=== PATIENT | male | born 1980 | race Caucasian/White ===

== ENCOUNTER 2024-07-04 09:26 | Observation (INO) | payer SELFPAY ==
[2024-07-04] VITALS (14 sets, daily range): BP systolic 129–165; BP diastolic 95–111; PULSE 82–106; RESP 13–18; TEMP 36.1–36.9; O2SAT 94–98; BMI 30.1; BMI 28.0
--- NOTE | 2024-07-04 09:31 | CT_ITS ---
We are attempting to reach an attending provider to discuss findings. An addendum with communication details will be sent when the communication is complete. EXAM: CT HEAD WITHOUT INTRAVENOUS CONTRAST CLINICAL INDICATION: CVA TECHNIQUE: Multiple axial images were obtained of the head without intravenous contrast. This CT exam was performed using one or more of the following dose reduction techniques: automated exposure control, adjustment of the mA and/or kV according to patient size, and/or use of iterative reconstruction technique. COMPARISON: No relevant prior studies available. FINDINGS: BRAIN AND EXTRA-AXIAL SPACES: Normal. Normal brain attenuation. No intra- or extra-axial hemorrhage. No acute infarct. No intracranial mass or mass effect. There is preservation of the duran/white matter interface. Posterior fossa structures are unremarkable. Ventricles are appropriate for age. No hydrocephalus. Basal cisterns are patent. BONES/JOINTS: Normal calvarium. SINUSES: No acute sinusitis. MASTOID AIR CELLS: Surgical changes of left mastoidectomy. Normal right mastoid sinus. CT/STROKE Brain/Head without Cont IMPRESSION: No acute intracranial abnormality. Aspect score 10. Electronically Signed: Dennys Gusman MD at 9:59 EST ,
--- NOTE | 2024-07-04 09:31 | CT_ITS ---
We are attempting to reach an attending provider to discuss findings. An addendum with communication details will be sent when the communication is complete. INDICATION: Neuro deficit, acute, stroke suspected EXAMINATION: CTA HEAD - CTA Head and Neck Stroke W/ Contrast (and W/O if performed) TECHNIQUE: [place]/head CT angiogram protocol was performed following IV contrast. Routine carotid CT angiogram protocol was performed with IV contrast. NASCET criteria using the distal ICAs for comparison were used for evaluation of stenoses. 3D reconstructions were reviewed of the CT angiogram head and neck. A radiation dose optimization technique was used for this scan. IV Contrast dosage and agent: 100 cc [id number] COMPARISON: None. FINDINGS: --Anterior cerebral circulation: ACAs: No significant stenosis at the visualized segments. ACOM: Not present. MCAs: No significant stenosis at the visualized segments. --Posterior cerebral circulation: PCOMs: Present bilaterally. hot wound spring production supervisor: No significant stenosis at the visualized segments. BASILAR ARTERY: No significant stenosis. --Carotid and vertebral circulation: AORTIC ARCH AND BRANCHES: Normal anatomy, patent. RIGHT CCA: No occlusion, significant stenosis or dissection. RIGHT ICA: No occlusion, significant stenosis or dissection. LEFT CCA: No occlusion, significant stenosis or dissection. LEFT ICA: No occlusion, significant stenosis or dissection. RIGHT VERTEBRAL ARTERY: No occlusion, significant stenosis or dissection. LEFT VERTEBRAL ARTERY: No occlusion, significant stenosis or dissection. NECK SOFT TISSUES: Unremarkable. LUNG APICES: Clear. BONES: Unremarkable. CT/STROKE CTA Head AND Neck W/Con IMPRESSION: Normal CTA Head and CTA Neck Electronically Signed: Dennys Gusman MD at 10:01 EST ,
--- NOTE | 2024-07-04 09:31 | EKG12_ITS ---
Test Reason : Blood Pressure : */* mmHG Vent. Rate : 100 BPM Atrial Rate : 100 BPM P-R Int : 168 ms QRS Dur : 64 ms QT Int : 314 ms P-R-T Axes : 52 52 56 degrees QTcB Int : 405 ms Normal sinus rhythm Normal ECG Confirmed by CHRISTINE LEWIS, FELIX ([id number]), editor in chief newspaper TONYA INIGUEZ ([id number]) on 07/06/2024 6:23:34 AM Referred By: Confirmed By: FELIX KING MD
--- NOTE | 2024-07-04 09:31 | RAD_ITS ---
EXAM: XR CHEST, 1 VIEW CLINICAL INDICATION: Neuro deficit, acute, stroke suspected TECHNIQUE: Frontal view of the chest. COMPARISON: No relevant prior studies available. FINDINGS: LUNGS AND PLEURAL SPACES: Normal. No consolidation or edema. No pneumothorax. No effusion. HEART: Normal heart size. MEDIASTINUM: No mediastinal or hilar mass. BONES/JOINTS: No acute abnormality. RAD/Chest 1 View IMPRESSION: No acute cardiopulmonary disease. Electronically Signed: Dennys Gusman MD at 11:23 EST ,
--- NOTE | 2024-07-04 09:35 | ED.VIS.STROK ---
HPI History of Present Illness Chief Complaint: Stroke Alert Informant: patient Onset/Context/Timing Onset: Today Context: Sudden Onset Timing: Continuous Quality and Location: Positive for Left Facial Droop, Left Arm Weakness and Left Leg Weakness Onset: Last known well was 0200 today. Worsened by: Nothing Relieved by: Nothing Associated Symptoms Associated Symptoms: Negative for Headache, Nausea, Vomiting or Chest Pain Narrative Narrative: Patient presents for stroke alert. Patient last known well was 2 AM today. [facility] and EMS was called because of the left facial weakness and left upper and lower extremity weakness. Patient states he has had a prior stroke but does not know what deficits he had with that. EMS also reports that the patient told them that he had a prior brain tumor. Patient denies any difficulty breathing or difficulty swallowing. Patient denies any slurred speech. Patient denies any visual changes. [facility] Medical History (Updated 07/04/24 @ 11:[address] Venancio Sim, DO) Stroke Home Medications ?Medication ?Instructions ?Recorded ?Last Taken ?Type NK 07/04/24 Unknown History Allergy/AdvReac Type Severity Reaction Status Date / Time ibuprofen (From Advil) Allergy Severe Anaphylaxis Verified 07/04/24 09:50 Social History Smoking Status: Never smoker EXAM Physical Exam Const Vital Signs: 07/04/24 09:27 07/04/24 09:31 07/04/24 09:44 Temperature 97.5 F L 97.5 F L Temperature Source Temporal Temporal Pulse Rate 98 98 Respiratory Rate 16 16 Blood Pressure 150/100 H 150/100 H Blood Pressure Mean 116 116 Pulse Ox 96 96 98 Oxygen Delivery Method Room Air Room Air Room Air 07/04/24 09:45 07/04/24 10:08 07/04/24 10:26 Temperature Temperature Source Pulse Rate 103 H 97 99 Respiratory Rate 16 13 16 Blood Pressure 157/111 H 159/102 H 148/101 H Blood Pressure Mean 126 121 116 Pulse Ox 97 97 94 Oxygen Delivery Method Room Air Room Air Room Air 07/04/24 10:39 07/04/24 11:05 07/04/24 11:19 Temperature 97.5 F L Temperature Source Oral Pulse Rate 92 90 96 Respiratory Rate 15 15 17 Blood Pressure 148/101 H 165/106 H 143/95 H Blood Pressure Mean 116 125 111 Pulse Ox 94 94 94 Oxygen Delivery Method Room Air Room Air Room Air 07/04/24 11:30 Temperature Temperature Source Pulse Rate 106 H Respiratory Rate 15 Blood Pressure 138/99 H Blood Pressure Mean 112 Pulse Ox 94 Oxygen Delivery Method Room Air Positive well nourished and well developed General Appearance ED: well developed and NAD HEENT Reports moist mucous membranes Eyes PERRL and EOMs intact bilaterally Eyes Narrative: On visual field testing, patient stated he could not see my fingers moving. However, whenever I have moved my fingers, he would replied that he could not see them even before I asked him. Therefore, I am not sure if he is having a visual field deficit or not. Neck supple and no JVD Chest Wall inspection of chest normal Resp normal respiratory effort and clear to auscultation bilaterally Cardio Rate: regular rate Rhythm: regular rhythm GI soft to palpation, non-tender and non-distended Extremity normal to inspection General Extremety ED: Negative for deformity General Extremity: Negative for deformity Neuro oriented x3 Neuro Narrative: There is left facial weakness noted. Patient is able to elevate both eyebrows equally. Patient was unable to hold his left leg off of the bed. Patient is able to hold his right leg off of the bed for 5 seconds. Patient is able to hold his right arm against gravity but is unable to hold his left arm up against gravity. [place] Coma Scale: document GCS findings Spontaneous Obeys Commands Oriented 15 Sensorium / Orientation: alert Speech: speech normal Psych mental status grossly normal NIHSS NIHSS Initial: 1a Level of Consciousness: 0 1b LOC Questions (Score 2 if aphasic/stupor): 0 1c LOC Commands (Only score 1st attempt): 0 2 Best Gaze (If aphasic, use reflexive mvmts.): 0 3 Visual: 0 4 Facial Palsy: 2 5 Motor Arm Right (UN = amputation/fusion): 0 5 Motor Arm Left: 2 6 Motor Leg Right: 0 6 Motor Leg Left: 2 8 Sensory (Aphasia/stupor=0 or 1, coma=2): 0 9 Best Language: 0 10 Dysarthria (mute, coma=2, intubated=UN): 0 11 Extinction and Inattention (only scored if +): 0 Total Score: 6 MDM MDM MDM Narrative Medical decision making narrative: Differential diagnosis includes stroke, intracranial bleeding, tumor, electrolyte abnormality, carotid stenosis, and conversion disorder. CT scan of the brain will be obtained to assess for intracranial bleeding and stroke. CT of the head and neck will be obtained to assess for large vessel occlusion and carotid stenosis. EKG will be obtained to assess for cardiac dysrhythmia and cardiac ischemia. Chest x-ray will be obtained to assess for pneumonia and widened mediastinum. CBC will be obtained to assess for leukocytosis and anemia. Basic metabolic profile will be obtained to assess for electrolyte abnormality and renal function. PT with INR and PTT will be obtained to assess for coagulopathy. High-sensitivity troponin will be obtained to assess for cardiac ischemia. Lab Data Attestation: I reviewed the patient's lab results. Lab results narrative: CBC was reviewed. There is a mild leukocytosis of 17.1. The remainder is within normal limits. Basic metabolic profile was reviewed and was within normal limits. High-sensitivity troponin was reviewed and was normal at 19. PT with INR and PTT were reviewed and were within normal limits. Labs: Laboratory Results - last 24 hr 07/04/24 09:40 WBC 17.1 H RBC 5.85 Hgb 17.1 H Hct 48.7 MCV 83.2 MCH 29.2 MCHC 35.1 RDW Std Deviation 36.3 RDW Coeff of Valerio 12.0 Plt Count 266 MPV 8.7 Immature Gran % (Auto) 0.500 Neut % (Auto) 84.4 H Lymph % (Auto) 9.3 L [place] % (Auto) 5.6 Eos % (Auto) 0.0 Baso % (Auto) 0.2 Absolute Neuts (auto) 14.4 H Absolute Lymphs (auto) 1.58 Nucleated RBC % 0 PT 13.8 INR 1.0 APTT 23.1 L Sodium 140 Potassium 4.2 Chloride 106 Carbon Dioxide 23.0 Anion Gap 11 BUN 13 Creatinine 1.16 Estim Creat Clear Calc 90.31 Est GFR (MDRD) Af Amer 88 Est GFR (MDRD) Non-Af 73 BUN/Creatinine Ratio 11.2 Glucose 127 H Calcium 9.7 Troponin I High Sens 19 Radiography Diagnostic Testing: Clinical Impression(s) from Imaging Studies Brain CT 07/04/24 09:31 IMPRESSION: No acute intracranial abnormality. Aspect score 10. Electronically Signed: Dennys Gusman MD at 9:59 EST , ADDENDUM: 07/04/24 1010 IMPRESSION: No acute intracranial abnormality. Aspect score 10. N.B. : The above Results were Read Back by Dennys Gusman MD to CHERYL López, and understanding confirmed on 07/04/2024 10:03:08 (ET). Electronically Signed: Dennys Gusman MD at 9:59 EST , Chest X-Ray 07/04/24 09:31 IMPRESSION: No acute cardiopulmonary disease. Electronically Signed: Dennys Gusman MD at 11:23 EST , Head/Neck CTA 07/04/24 09:31 IMPRESSION: Normal CTA Head and CTA Neck Electronically Signed: Dennys Gusman MD at 10:01 EST , ADDENDUM: 07/04/24 1009 IMPRESSION: Normal CTA Head and CTA Neck N.B. : The above Results were Read Back by Dennys Gusman MD to Venancio Sim DO, and understanding confirmed on 07/04/2024 10:02:47 (ET). Electronically Signed: Dennys Gusman MD at 10:01 EST , CT scan of the brain was obtained. There is no acute intracranial abnormality. This was interpreted by the radiologist and was also independently reviewed by myself. Portable 1 view chest x-ray was obtained. On my independent interpretation, lung lauren are clear. There is normal cardiac silhouette. Bony thorax is normal. There is no acute process noted. Radiologist also interpreted the x-ray and agrees. CTA of the head and neck was obtained. There is no evidence of large vessel occlusion or carotid stenosis. This was interpreted by the radiologist and was also independently reviewed by myself. Management Discussion w/another healthcare provider: Hospitalist (Dr. Rojas), Customs Opener Verifier Packer (Dr. Boo, stroke neurologist at [facility]) and Radiologist Treatment and Re-Evaluation Narrative: Prehospital stroke alert was called. Patient was seen in the ambulance bay. Patient was taken immediately to CT scan. While here in the emergency department, nursing staff reports that the patient was able to move his fingers of his left hand when he was distracted. Case was discussed with the hospitalist. He will admit the patient to his service for observation. Patient understood and was agreeable with the plan. All questions were answered. Stroke Documentation Questions Stroke Team Activated: Yes Reviewed Inclusion/Exclusion criteria: Yes Was Patient considered for Endovascular Intervention?: No-CTA negative, determined not to be an endovascular candidate IV Thrombolytic Administered: No Discharge Plan Triage Chief Complaint: Stroke Alert ED Provider: Venancio Sim Dx/Rx/DC Orders Clinical Impression: Acute left-sided weakness, History of stroke, Elevated blood pressure reading Prescriptions: No Action NK Primary Care Provider: Care Physician,No Primary Referrals: Care Physician,No Primary [Primary Care Provider] - Print Language: [place] Disposition Disposition: Acute Care Hospital [facility]
[2024-07-04 09:45] LABS: Absolute Lymphocyte Count 1.58 X10^3/uL (0.83-4.51); Absolute Neutrophil Count 14.4 X10^3/uL (2.0-7.7); Basophil# 0.03 X10^3/uL; Basophil% 0.2 % (0-1); Hematocrit 48.7 % (40-54); Hemoglobin 17.1 g/dL (13.0-16.5); Lymphocyte # 1.58 X10^3/ul (0.83-4.51); Lymphocyte % 9.3 % (19-41); Mean Corp Hgb Conc 35.1 g/dL (32-36); Mean Corpuscular Hgb 29.2 pg (27.0-32.0); Mean Corpuscular Volume 83.2 fL (80-94); Mean Platelet Vol. 8.7 fl (6.2-12.0); Monocyte# 0.95 X10^3/uL; Monocyte% 5.6 % (0-10); NRBC Flagged by Analyzer 0 % (0-5); Neutrophil # 14.42 X10^3/uL (2.7-7.7); Neutrophil % 84.4 % (47-70); Platelet Count 266 K/mm3 (150-450); RBC Distribution Width SD 36.3 fl (35.1-43.9); Red Blood Count 5.85 M/mm3 (4.6-6.2); White Blood Count 17.1 K/mm3 (4.4-11.0)
[2024-07-04 09:54] LABS: Prothrombin Time (Protime)PT. 13.8 SECONDS (11.7-14.9)
[2024-07-04 09:55] LABS: Partial Thromboplast Time 23.1 Seconds (24.1-36.2)
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
--- NOTE | 2024-07-04 10:10 | ED.RN ---
PT IS NOT BEING CONSISTENT WITH HIS NIH. PT DOES STATE HIS FACIAL DROOP HAPPENS WHEN HE IS UNDER STRESS
[2024-07-04 10:20] LABS: Anion Gap 11 (5-15); BUN 13 mg/dL (7-18); BUN/Creat Ratio 11.2 RATIO (10-20); Calcium,Total 9.7 mg/dL (8.5-10.1); Chloride 106 mmol/L (98-107); Creatinine, Serum 1.16 mg/dL (0.70-1.30); EST Glomerular Filtration Rate 73 mL/min (>60); Est Glom Filt Rate - Afr Amer 88 mL/min (>60); Estimated Creatinine Clearance 90.31 ml/min; Glucose 127 mg/dL (74-106); Potassium 4.2 mmol/L (3.5-5.1); Sodium Level 140 mmol/L (136-145); Troponin-I HS 19 pg/mL (3.0-78.0)
--- NOTE | 2024-07-04 10:40 | ED.RN ---
PT IS TALKING ABOUT DIFFERENT GUNS AND AMMO WITH THE OFFICER AT HIS BEDSIDE. PT IS TALKING WITH NO PROBLEMS. PT IS STILL NOT MOVING HIS LEFT SIDE BUT LIFTED HIS ARM UP ONTO THE BED BETTER HE WAS TALKING
--- NOTE | 2024-07-04 11:27 | ED.RN ---
pt was talking and moving his mouth and forming sentences. it appears he has chronic deficit on the left but claims he can't feel on the right. pt failed his dysphaga screen because he states he can't do things which isn't consistent with the behavior witnessed while pt was distracted.
--- NOTE | 2024-07-04 11:31 | ED.RN ---
PT IS IS NOW DOING LESS TEST STATING HE CAN'T EVEN THOUGH HE HAS PREVIOUSLY. PT IS TALKING WITH OFFICER ABOUT HIS COURT DATE COMING UP PRIOR TO TE NIH TEST. PT IS AWARE HE WOULD PROBABLY GOT TO COURT TOMORROW IF NOT IN THE HOSPITAL.
--- NOTE | 2024-07-04 13:41 | NURSING ---
Dr. Rojas in room to evaluate pt [facility]
--- NOTE | 2024-07-04 14:03 | RAD_ITS ---
INDICATION: Pain EXAMINATION/TECHNIQUE: X-RAY - RIGHT XR Hand 2 Views 2 VIEWS COMPARISON: No relevant prior comparison study available FINDINGS: SOFT TISSUES: No soft tissue swelling or gas. Small periarticular calcifications are seen near the DIP joints of the thumb, index finger and little finger. No radiopaque foreign body. BONES/JOINTS: No acute fracture or subluxation.. Normal alignment. Preservation of the joint space.. No sclerotic or destructive changes observed. RAD/Hand 2 Views IMPRESSION: No evidence of acute fracture. Electronically Signed: Nito Kong MD at 23:24 EST ,
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
[2024-07-04] MEDS: 0.9% Normal Saline (1000mL) 1,000 ML 75 ML IV (15:02)
[2024-07-04] MEDS: Atorvastatin Calcium 80 MG Tablet PO (21:12)
[2024-07-04] MEDS: Acetaminophen 500 MG Tablet 1000 MG PO (22:46)
--- NOTE | 2024-07-04 23:17 | NURSING ---
During NIHSS assessment pt noted to be unable to move left arm or left leg. When the limbs were held up, they fell to the bed with no effort against gravity. This RN noted pt was able to move left arm when getting BP taken. Additionally pt moved left arm and left leg multiple times while adjusting himself in bed. Viktoria Colón RN
[2024-07-05 00:40] VITALS: BP 119/83; PULSE 66; RESP 16; TEMP 36.7; O2SAT 94
[2024-07-05 04:40] VITALS: BP 127/91; PULSE 66; RESP 18; TEMP 36.6; O2SAT 97
[2024-07-05 08:21] VITALS: BP 111/76; PULSE 66; RESP 16; TEMP 36.5; O2SAT 98
[2024-07-05 08:29] LABS: Absolute Lymphocyte Count 1.72 X10^3/uL (0.83-4.51); Absolute Neutrophil Count 7.4 X10^3/uL (2.0-7.7); Basophil# 0.04 X10^3/uL; Basophil% 0.4 % (0-1); Hematocrit 43.4 % (40-54); Hemoglobin 15.3 g/dL (13.0-16.5); Lymphocyte # 1.72 X10^3/ul (0.83-4.51); Lymphocyte % 17.4 % (19-41); Mean Corp Hgb Conc 35.3 g/dL (32-36); Mean Corpuscular Hgb 29.4 pg (27.0-32.0); Mean Corpuscular Volume 83.5 fL (80-94); Monocyte# 0.66 X10^3/uL; Monocyte% 6.7 % (0-10); NRBC Flagged by Analyzer 0 % (0-5); Neutrophil # 7.44 X10^3/uL (2.7-7.7); Neutrophil % 75.1 % (47-70); Platelet Count 228 K/mm3 (150-450); RBC Distribution Width CV 11.9 % (11.6-14.6); RBC Distribution Width SD 35.9 fl (35.1-43.9); White Blood Count 9.9 K/mm3 (4.4-11.0)
[2024-07-05] MEDS: Clopidogrel Bisulfate 75 MG Tablet PO (08:47)
[2024-07-05] MEDS: LORazepam 0.5 MG Tablet PO (08:47)
[2024-07-05 09:02] LABS: Anion Gap 6 (5-15); BUN 13 mg/dL (7-18); BUN/Creat Ratio 12.5 RATIO (10-20); Calcium,Total 9.3 mg/dL (8.5-10.1); Chloride 105 mmol/L (98-107); Cholesterol 197 mg/dL (200); Creatinine, Serum 1.04 mg/dL (0.70-1.30); EST Glomerular Filtration Rate 83 mL/min (>60); Est Glom Filt Rate - Afr Amer 100 mL/min (>60); Estimated Creatinine Clearance 97.53 ml/min; Glucose 117 mg/dL (74-106); High Density Lipoprotein 35 mg/dL; Potassium 3.6 mmol/L (3.5-5.1); Sodium Level 136 mmol/L (136-145); Triglycerides 174 mg/dL; Very Low Density Lipoprotein 35 mg/dL (5-40)
[2024-07-05 09:12] VITALS: BMI 28.0
[2024-07-05 09:14] VITALS: BMI 28.0
--- NOTE | 2024-07-05 09:30 | MRI_ITS ---
EXAM: MR HEAD WITHOUT INTRAVENOUS CONTRAST CLINICAL INDICATION: CVA TECHNIQUE: Multiplanar and multisequence MR images of the brain were obtained without intravenous contrast. COMPARISON: No relevant prior studies available. FINDINGS: BRAIN AND EXTRA-AXIAL SPACES: Normal. No intra- or extra-axial hemorrhage. No evidence of acute infarct. No intracranial mass or mass effect. Normal preservation of the duran/white matter interface. Posterior fossa structures are unremarkable. Ventricles are appropriate for age. No hydrocephalus. Basal cisterns are patent. SELLA: Normal. Normal sella turcica, pituitary gland, infundibular stalk, optic chiasm and hypothalamus. AUDITORY SYSTEM: Normal. The internal auditory canals are patent. BONES/JOINTS: Intact calvarium. SINUSES: Unremarkable as visualized. Clear. MASTOID AIR CELLS: Clear. ORBITS: Unremarkable as visualized. Both globes, extraocular muscles, optic nerves and retrobulbar fat appear unremarkable. VASCULATURE: Unremarkable as visualized. Normal flow voids in the major intracranial circulation. MRI/Brain without Contrast IMPRESSION: Normal MRI brain without intravenous contrast. Electronically Signed: Dennys Gusman MD at 13:55 EST ,
[2024-07-05 12:18] VITALS: BP 134/92; PULSE 66; RESP 16; TEMP 36.6; O2SAT 96
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
--- NOTE | 2024-07-05 14:03 | CASEMGMT ---
SW did not complete a PHQ9 as patient did not have a Stroke. Ning MCWILLIAMS
--- NOTE | 2024-07-05 14:19 | DCINST_ITS ---
Discharge Instructions Diet Discharge Diet: No restrictions DC O2, CPAP, BIPAP needs Home O2 Discharge instructions: No Dressing / Incision Discharge Activity: Return to Normal Activity Dressing / Incision Call your doctor if you observe: Fever of 101 or Higher, Shortness of breath, Dizziness, Fainting spells, Swelling in the ankles, Chest pain and Increased palpitations (irregular heartbeat) Follow Up Care Test Results: Test results from this visit will be discussed in further detail at your follow- up appointment, if applicable. Discharge Plan Admission Admit Date/Time: 07/04/24 11:29 Attending Provider: Don Rojas Primary Care Provider: Care Physician,Lashonda Primary Discharge Orders/Prescriptions Prescriptions: New atorvastatin 80 mg Tablet 80 mg PO QHS 30 Days Qty: 30 0RF clopidogrel 75 mg Tablet 75 mg PO DAILY 30 Days Qty: 30 0RF Referrals / Follow Up: Care Physician,No Primary [Primary Care Provider] - Disposition Disposition (needs filled in before D/C Order can be placed): Home, Self Care
[2024-07-05 14:20] VITALS: BP 134/92; PULSE 66; RESP 16; TEMP 36.6; O2SAT 96
--- NOTE | 2024-07-05 14:38 | CASEMGMT ---
Addendum entered by Ning Rothman 07/05/24 14:54: Patient stated he recently signed up for Medicaid. Ning MCWILLIAMS Original Note: Per physician patient said he needs a ride home. SW called [facility] van transport and they do not have any availability today. SW met with patient. Introduced self and role at [facility]. Patient confirmed he needs a ride home. SW explained to patient that the hospital van is not available and that is really the only option. Patient said he has no one to pick him up. SW told patient SW will see if there is anything that can be done. IT SERVICE DELIVERY MANAGER came to SW and said patient said he thinks he found a ride. Ning MCWILLIAMS
--- NOTE | 2024-07-05 15:09 | CASEMGMT ---
Jaleesa from [employer] spoke with patient and he declined her assistance with applying for Medicaid. Patient said he already applied. Ning MCWILLIAMS
--- NOTE | 2024-07-05 15:47 | CASEMGMT ---
Patient has order for discharge. Patient does not have PCP. BOLA MORRIS in to discuss needs at discharge with patient. BOLA MORRIS provided patient with PCP list and [facility] information. Patient inquired about walker at discharge. BOLA MORRIS explained walker process and that patient could be billed for walker as he is currently self pay. Patient states he has applied for [facility] and awaiting approval. Patient agreeable to be billed for walker and prefers [facility]. Patient voiced concerns regarding stroke workout up, PCU director updated. BOLA MORRIS discussed possible therapy with patient, patenit agreeable to schedule outpatient therapy once [facility] approved. BOLA MORRIS updated hospitalist, scripts received. BOLA MORRIS sent referral to [facility] and arranged for walker to be delivered to room. BOAL MORRIS provided patient with script for outpatient therapy. Patient voiced appreciation and had no further questions or concerns. Discharge plan updated.
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
== END 2024-07-05 14:20 | disposition home or self-care (01) ==
LOC: ED 11:44 → PCU 11:57
PROVIDERS: Admitting Provider Family Medicine; Emergency Provider Emergency Medicine; Visit Provider Family Medicine
DX: R29.818 Other symptoms and signs involving the nervous system (principal); R29.706 NIHSS score 6; R29.810 Facial weakness; Z86.73 Personal history of transient ischemic attack (TIA), and cerebral infarction without residual deficits; R03.0 Elevated blood-pressure reading, without diagnosis of hypertension; F17.290 Nicotine dependence, other tobacco product, uncomplicated
CPT/HCPCS: 36415; 70450; 70496; 70498; 70551; 71045; 73120; 80048; 80061; 84484; 85025; 85610; 85730; 92610; 93005; 96360; 96361; 97162; 97166; 97802; 99221; 99285; Q9967; A4216; G0378